=== PATIENT | female | born 1985 | race Caucasian/White ===

== ENCOUNTER 2017-10-10 11:56 | Outpatient (CLI) | payer OTHER ==
[~2017-10-10] VITALS: Ht 170.2 cm; Wt 86.9 kg
[2017-10-10] MEDS ORDERED: TIZA4CAP8 PO (12:12)
[2017-10-10] MEDS ORDERED: DIPH25CA79 PO (12:12)
[2017-10-10] MEDS ORDERED: RANI-515 PO (12:12)
[2017-10-10] MEDS ORDERED: METO100T12 PO (12:12)
[2017-10-10] MEDS ORDERED: CLON0.5T25 PO (12:12)
[2017-10-10] MEDS ORDERED: GABA-488 PO (12:12)
[2017-10-10] MEDS ORDERED: TRAZ150T72 PO (12:12)
[2017-10-10 12:15] VITALS: BP 102/62
[2017-10-10 12:57] LABS: BASOPHILS % (AUTO) 1 % (0-10); EOSINOPHILS # (AUTO) 0.1 10^3/uL (0.0-0.3); EOSINOPHILS % (AUTO) 2 % (0-10); HEMATOCRIT 39 % (35-52); HEMOGLOBIN 14.4 G/DL (11.5-16.0); LYMPHOCYTES # (AUTO) 3.1 X 10^3 (1.0-4.0); LYMPHOCYTES % (AUTO) 39 % (12-44); MEAN CORPUSCULAR HEMOGLOBIN 34 PG (25-34); MEAN CORPUSCULAR HGB CONC 37 G/DL (32-36); MEAN CORPUSCULAR VOLUME 93 FL (80-99); MEAN PLATELET VOLUME 9.9 FL (7.4-10.4); MONOCYTES # (AUTO) 0.5 X 10^3 (0.0-1.0); MONOCYTES % (AUTO) 6 % (0-12); NEUTROPHILS # (AUTO) 4.2 X 10^3 (1.8-7.8); NEUTROPHILS % (AUTO) 53 % (42-75); PLATELET COUNT 237 10^3/uL (130-400); RED BLOOD COUNT 4.23 10^6/uL (4.35-5.85); RED CELL DISTRIBUTION WIDTH 11.9 % (10.0-14.5); WHITE BLOOD COUNT 7.9 10^3/uL (4.3-11.0)
== END 2017-10-11 09:42 ==
LOC: PREOP 11:56
PROVIDERS: ATTEND Obstetrics & Gynecology
DX: Z01.812 Encounter for preprocedural laboratory examination (principal); Z11.2 Encounter for screening for other bacterial diseases; N81.2 Incomplete uterovaginal prolapse; N39.3 Stress incontinence (female) (male)
CPT/HCPCS: 36415; 85025; 86850; 86900; 86901; 87081

== ENCOUNTER → 2021-06-21 | Outpatient (CLI) | payer BC ==
[~2021-06-21] MED LIST: CLON0.5T25 PO; DIPH25CA79 PO; DOCU100C37 PO; GABA-488 PO; GADOBUTROL 10 MMOL/10 ML (GADAVIST) VIAL IV ONE; IBUP-1780 PO; METO100T12 PO; OXYC-556 PO; RANI-609 PO; TIZA4CAP8 PO; TRAZ150T72 PO
--- NOTE | 2021-06-21 13:21 | Diagnostic Imaging Report ---
CLINICAL INDICATION: Patient had right-sided facial numbness. Left-sided body weakness and confusion with episode about a month ago and still has left-sided body weakness. EXAM: MRI of the brain performed without and with 9 cc of Gadavist IV contrast. Sequences include axial DWI, ADC map, coronal gradient echo, axial T2, axial FLAIR, axial T1, axial T1 post IV contrast, coronal T1 fat-sat post IV contrast, and sagittal T1 post IV contrast. COMPARISON: None. FINDINGS: There is no evidence of acute cerebral infarct, intracranial hemorrhage, or gross mass effect. There is no abnormal IV contrast enhancement. The brain parenchymal volume appears appropriate for patient's age. There are several focal areas of high T2 signal white matter changes involving subcortical and deep white matter of both cerebral hemispheres, likely representing chronic small vessel ischemic disease. There is normal martines-white matter distinction. There is no significant midline shift or herniation. The [place] vascular structures show no gross abnormality as visualized. The pituitary gland, sella, and suprasellar regions are unremarkable as visualized. There is no evidence of hydrocephalus. The basal cisterns are unremarkable. The skull, extracranial soft tissue, and orbits are unremarkable. There is a moderate-sized mucous retention cyst involving the left maxillary sinus. Temporal bones show no significant abnormality. IMPRESSION: 1: There is no evidence of acute intracranial process. There is no abnormal IV contrast enhancement. 2: There are several nonspecific focal areas of high T2 signal white matter changes involving both frontal lobes. Findings may be seen with migraine headaches or early chronic small vessel ischemic disease. Although these do not have the typical location of demyelinating lesions, a demyelinating process should be excluded. 3: The remainder of the brain parenchyma is unremarkable. 4: Moderate-sized left maxillary sinus mucous retention cyst. Dictated by: Dictated on workstation # [id number]
--- NOTE | 2021-06-21 13:30 | Diagnostic Imaging Report ---
PROCEDURE: US carotid duplex, bilateral. TECHNIQUE: Multiple real-time grayscale images were obtained over the carotid arteries in various projections, bilaterally. Additional spectral analysis and color Doppler duplex images were also obtained. INDICATION: Transient ischemic attack. COMPARISON: None. FINDINGS: Right carotid: No significant atherosclerosis or stenosis is seen in the right common or internal carotid arteries. The distal internal carotid artery is deep and difficult to visualize. The ECA is patent. The vertebral artery is antegrade. Carotid upstrokes are brisk. Left carotid: No significant atherosclerosis or stenosis is seen in the common carotid artery or internal carotid artery. The distal ICA is deep and somewhat difficult to visualize. The ECA appears patent. The vertebral artery is antegrade. Carotid upstrokes are brisk. Parameters based on the consensus panel Lopez-Scale and Doppler ultrasound criteria published July 2003, Radiology, Volume 229. DOPPLER (peak systolic velocity M/S Right Left CCA 1.0 .65 ICA Proximal .73 .87 ICA Mid .90 .65 ICA Distal .63 .43 RATIO .87 1.35 ECA .65 .73 VERT .44 .44 IMPRESSION: 1. No hemodynamically significant stenosis in the bilateral carotid arteries. Dictated by: Dictated on workstation # [id number]
== END ==
LOC: CARD 09:30
PROVIDERS: ATTEND Internal Medicine Cardiovascular Disease
DX: I51.7 Cardiomegaly (principal); Z86.73 Personal history of transient ischemic attack (TIA), and cerebral infarction without residual deficits
CPT/HCPCS: 70553; 93306; 93880

== ENCOUNTER 2021-08-03 09:30 | Day surgery (SDC) | payer BC ==
[~2021-08-03] VITALS: Ht 170.2 cm; Wt 96.4 kg
[2021-08-03 09:23] VITALS: BP 101/64
[~2021-08-03 09:30] MED LIST changes: -GADOBUTROL 10 MMOL/10 ML (GADAVIST) VIAL IV ONE
[2021-08-03] MEDS ORDERED: LIDOCAINE 1% INJ 20 ML 20 ML VIAL ONE (09:42)
--- NOTE | 2021-08-03 09:48 | Consultation-Cardiology ---
HPI-Cardiology Cardiology Consultation: Date of Consultation 08/03/2021 Date of Admission 08/03/2021 This is a history and physical for loop recorder implantation. Attending Physician George Loza Jr, MD Admitting Physician [facility] Consulting Physician GEORGE LOZA JR, MD HPI: Time Seen by a Provider: 09:43 Chief Complaint: Possible transient ischemic attack and palpitations. Kimberly is a 36-year-old female with a long history of palpitations. I met her in the office in May 2021 after she had symptoms consistent with a possible transient ischemic attack. I had her undergo a 30-day external manager cardiac cath that did not reveal any evidence of atrial fibrillation. As such, she presents today for an implantable loop recorder insertion. She denies any recurrent neurologic symptoms. She continues to have palpitations on almost a daily basis. She will feel like her heart is pounding out of her chest. Sometimes this will make her chest feel tight and she will be short of breath. Usually these symptoms will be mild and short-lived but at other times, the symptoms may be more severe and prolonged. She denies any syncope. She denies paroxysmal nocturnal dyspnea, orthopnea, or ankle edema. Certain portions of this document may have been dictated utilizing voice recognition technology. Inherent to this technology, typographical and grammatical errors may exist. As much as I am diligent to identify and correct these mistakes, some errors may remain in the document. Review of Systems-Cardiology Review of Systems Other comments Review of 10 organ systems is as per the history of present illness, otherwise negative. BUU-Licreh-Ifejmf Hx Patient Social History Smoking Status: Former Smoker Past Medical History PMH As described under Assessment. Family Medical History Family Medical History: The patient does not know of any family history of premature coronary artery disease in first-degree relatives. Allergies and Home Medications Allergies Coded Allergies: buspirone (Verified Allergy, Mild, "MADE ME CRAZY", 11/08/17) hydrocodone (Verified Adverse Reaction, Mild, N/V, 11/08/17) morphine (Verified Adverse Reaction, Mild, N/V, 11/08/17) Patient Home Medication List Home Medication List Reviewed: Yes Clonazepam (Clonazepam) 0.5 Mg Tab.rapdis, 0.5 MG PO BID PRN for ANXIETY, (Reported) Entered as Reported by: TETE AGUILAR on 10/10/17 1212 Diphenhydramine HCl (Benadryl) 25 Mg Capsule, 50 MG PO PRN PRN for CONGESTION, (Reported) Entered as Reported by: TETE AGUILAR on 10/10/17 1212 Docusate Sodium (Docusate Sodium) 100 Mg Capsule, 100 MG PO BID Prescribed by: ROSALIO QUINTERO on 11/09/17 1030 Gabapentin (Gabapentin) 300 Mg Capsule, 300 MG PO TID, (Reported) Entered as Reported by: TETE AGUILAR on 10/10/17 1212 Ibuprofen (Ibuprofen) 800 Mg Tablet, 800 MG PO Q6H Prescribed by: ROSALIO QUINTERO on 11/09/17 1030 Metoprolol Tartrate (Metoprolol Tartrate) 100 Mg Tablet, 100 MG PO TID, (Reported) Entered as Reported by: TETE AGUILAR on 10/10/17 121 Oxycodone HCl/Acetaminophen (Oxycodone-Acetaminophen 10-325) 1 Each Tablet, 1-2 TAB PO Q4HR PRN for PAIN-MODERATE TO SEVERE Prescribed by: ROSALIO QUINTERO on 11/09/17 1030 Ranitidine HCl (Acid Grain Blender (RANITIDINE)) 150 Mg Tablet, 150 MG PO DAILY PRN for HEARTBURN, (Reported) Entered as Reported by: TETE AGUILAR on 10/10/17 1212 Tizanidine HCl (Tizanidine HCl) 4 Mg Capsule, 4 MG PO TID, (Reported) Entered as Reported by: TETE AGUILAR on 10/10/17 1212 Trazodone HCl (Trazodone HCl) 150 Mg Tablet, 150 MG PO HS, (Reported) Entered as Reported by: TETE AGUILAR on 10/10/17 1212 Exam Vital Signs Vital Signs Date Time Temp Pulse Resp B/P (MAP) Pulse Ox O2 Delivery O2 Flow Rate FiO2 08/03/21 09:23 36.3 63 18 101/64 (76) 97 Physical Exam General: Alert. No acute distress. Well nourished and appears stated age. Eye: Extraocular movements are intact. Conjunctivae are clear. There are no xanthelasma. HENT: Normocephalic. Atraumatic. Carotid pulsations 2/2 without bruits. Neck: Jugular venous pressure does not appear elevated. No thyromegaly appreciated. Respiratory: Lungs are clear to auscultation. Respirations are non-labored. Breath sounds are equal. Symmetrical chest wall expansion. Cardiovascular: Normal rate. Regular rhythm. No murmur. No gallop. Point of maximal impulse is not appear displaced. Good pulses equal in all extremities. No edema. Gastrointestinal: Soft. Normal bowel sounds. Skin: Skin turgor is normal. There is no pallor. Musculoskeletal: No kyphosis or scoliosis appreciated. Neurologic: Alert and oriented to person, place, time. Cranial nerves 3-12 appear grossly intact. The patient has good motor tone strength in the upper and lower extremities bilaterally. Psychiatric: Cooperative. Appropriate mood & affect. Diagnosis/Problems Diagnosis/Problems (1) History of transient ischemic attack Assessment & Plan: As above, she had a possible transient ischemic attack a couple of months ago. No recurrent neurologic symptoms. She had an MRI of the brain that did not show any definitive evidence of a previous stroke. We will proceed with an implantable loop recorder today for prolonged surveillance of possible atrial fibrillation. (2) Palpitations Assessment & Plan: Etiology unclear. There is no evidence of Vcwat-Ptkbgrwpm-Vbxcn, Brugada syndrome, or prolonged or short QT on her resting electrocardiogram. She did have isolated premature ventricular complexes on her event monitor but these did not correlate to her symptoms during the test. We will provide her with a patient activated for the loop recorder so that we can further evaluate her palpitations. (3) Primary hypertension Assessment & Plan: Continue outpatient antihypertensive medication. (4) Obesity Assessment & Plan: She needs to work on weight loss. GEORGE LOZA JR, MD Aug 03, 2021 09:48
--- NOTE | 2021-08-03 10:20 | Cardiac Procedure Note ---
Cardiology Procedures Date of Procedure 08/03/2021 IMPLANTABLE LOOP RECORDER INSERTION INDICATION: Personal history of transient ischemic attack and palpitations. PROCEDURE: After informed consent and in the fasting state, the left pectoral area was prepped and draped in the usual sterile fashion. The skin and subcutaneous tissue in the fourth intercostal space in the midclavicular line were infiltrated with 2% lidocaine for local anesthesia. A peterson was made in the skin using the insertion kit. A Medtronic LINQ II implantable loop recorder, serial number [id number], was then inserted using the insertion tool. The device was interrogated and there was good R wave sensitivity. Dermabond was applied to the incision. A sterile antibiotic dressing was applied. IMPRESSION: 1. Status post successful implantable loop recorder insertion with a Medtronic LINQ II loop recorder, serial number [id number]. Certain portions of this document may have been dictated utilizing voice r ecognition technology. Inherent to this technology, typographical and grammatical errors may exist. As much as I am diligent to identify and correct these mistakes, some errors may remain in the document. GEORGE BOOKER JR, MD Aug 03, 2021 10:20
[2021-08-03 10:38] LABS: BASOPHILS % (AUTO) 1 % (0-10); EOSINOPHILS # (AUTO) 0.2 10^3/uL (0.0-0.3); EOSINOPHILS % (AUTO) 2 % (0-10); HEMATOCRIT 39 % (35-52); HEMOGLOBIN 13.6 g/dL (11.5-16.0); LYMPHOCYTES # (AUTO) 3.3 10^3/uL (1.0-4.0); LYMPHOCYTES % (AUTO) 44 % (12-44); MEAN CORPUSCULAR HEMOGLOBIN 33 pg (25-34); MEAN CORPUSCULAR HGB CONC 35 g/dL (32-36); MEAN CORPUSCULAR VOLUME 94 fL (80-99); MEAN PLATELET VOLUME 9.4 fL (9.0-12.2); MONOCYTES # (AUTO) 0.3 10^3/uL (0.0-1.0); MONOCYTES % (AUTO) 5 % (0-12); NEUTROPHILS # (AUTO) 3.6 10^3/uL (1.8-7.8); NEUTROPHILS % (AUTO) 48 % (42-75); PLATELET COUNT 230 10^3/uL (130-400); WHITE BLOOD COUNT 7.4 10^3/uL (4.3-11.0)
[2021-08-03 11:16] LABS: ALBUMIN 4.3 GM/DL (3.2-4.5); BILIRUBIN,TOTAL 0.5 MG/DL (0.1-1.0); CALCIUM 9.3 MG/DL (8.5-10.1); CREATININE SERUM 0.78 MG/DL (0.60-1.30); POTASSIUM 4.3 MMOL/L (3.6-5.0); TOTAL PROTEIN 7.1 GM/DL (6.4-8.2)
== END 2021-08-03 11:01 | disposition home or self-care (01) ==
LOC: CATH 09:30
PROVIDERS: ATTEND Internal Medicine Cardiovascular Disease
DX: R00.1 Bradycardia, unspecified (principal); I10 Essential (primary) hypertension; E66.9 Obesity, unspecified; Z68.33 Body mass index [BMI] 33.0-33.9, adult; Z87.891 Personal history of nicotine dependence; Z88.5 Allergy status to narcotic agent; Z88.8 Allergy status to other drugs, medicaments and biological substances; Z79.899 Other long term (current) drug therapy
CPT/HCPCS: 33285; 80053; 80061; 84443; 85025; C1764; 36415

== ENCOUNTER → 2023-01-23 | Outpatient (CLI) | payer BC ==
--- NOTE | 2023-01-23 14:48 | Diagnostic Imaging Report ---
EXAMINATION: MRI of the right lower extremity with and without contrast, 01/23/2023. TECHNIQUE: Multiplanar, multisequence pre- and gekg-jdfbowgj-ldfkeelz MR imaging of the right lower extremity was accomplished. INDICATION: Hit foot on a hard surface two months ago. Pain along the top of the foot. FINDINGS: The visualized osseous structures demonstrate normal signal intensity with no fractures identified. Visualized tendons are also intact. Soft tissues are unremarkable. No focal measurable masses or fluid collections appreciated. Postcontrast imaging demonstrates no abnormal enhancement with hyperintensity about the fourth toe, likely artifactual. This appears to represent incomplete fat saturation. No abnormally enhancing masses appreciated. IMPRESSION: 1. No evidence for an acute abnormality. Visualized tendons and osseous structures intact. 2. Not mentioned in the body of the report, minimal fluid is seen within the soft tissues in between the metatarsal heads of uncertain etiology. This could be due to stress reaction. Correlate with site of pain. Dictated by: Dictated on workstation # [id number]
== END ==
LOC: RAD 09:12
PROVIDERS: ATTEND Nurse Practitioner Family
DX: M79.671 Pain in right foot (principal)
CPT/HCPCS: 73720

== ENCOUNTER → 2023-01-30 | Outpatient (CLI) | payer BC | LOC: ORTHO 09:20 | PROVIDERS: ATTEND Orthopaedic Surgery | DX: S93.691A Other sprain of right foot, initial encounter (principal); I10 Essential (primary) hypertension; E66.9 Obesity, unspecified; X58.XXXA Exposure to other specified factors, initial encounter; Z72.0 Tobacco use | CPT/HCPCS: 99203 ==

== ENCOUNTER 2023-03-22 11:08 | Emergency (ER) | payer BC ==
[~2023-03-22] VITALS: Ht 170.2 cm; Wt 100.0 kg
--- NOTE | 2023-03-22 11:26 | ED Abdominal Pain ---
General Chief Complaint: Abdominal/GI Problems Stated Complaint: LOWER RT ABD PAIN Nursing Triage Note: PT AMBULATE TO ROOM 07 WITHOUT DIFFICULTY WITH C/O RIGHT LOWER ABD PAIN, N/V, CRAMPING STARTING YESTERDAY MORNING. PT SENT FROM PCP. Source of Information: Patient Exam Limitations: No Limitations History of Present Illness Date Seen by Provider: Mar 22, 2023 Time Seen by Provider: 11:12 Initial Comments 37-year-old female presents to the ER with complaints of right lower quadrant abdominal pain which radiates around to her right hip. She states that she star anthony having generalized abdominal cramping then it moved into the right lower quadrant yesterday morning. She denies known fevers, but reports sweating. Reports nausea, no vomiting. Reports multiple episodes of diarrhea, thinks she had approximately 10 loose stools yesterday and 3 today. Denies any vaginal bleeding or discharge. Denies dysuria. She has had a partial hysterectomy. Other abdominal surgeries include cholecystectomy, tubal ligation, and a bladder sling. She has a history of IBS, kidney infections, elevated heart rate, migraines. She currently takes metoprolol, tizanidine, trazodone, and lamotrigine. Allergies and Home Medications Allergies Coded Allergies: buspirone (Verified Allergy, Mild, "MADE ME CRAZY", 11/08/17) morphine (Verified Adverse Reaction, Mild, N/V, 11/08/17) Patient Home Medication List Home Medication List Reviewed: Yes Clonazepam (Clonazepam) 0.5 Mg Tab.rapdis, 0.5 MG PO BID PRN for ANXIETY, (Reported) Entered as Reported by: TETE AGUILAR on 10/10/17 1212 Diphenhydramine HCl (Benadryl) 25 Mg Capsule, 50 MG PO PRN PRN for CONGESTION, (Reported) Entered as Reported by: TETE AGUILAR on 10/10/17 1212 Docusate Sodium (Docusate Sodium) 100 Mg Capsule, 100 MG PO BID Prescribed by: ROSALIO QUINTERO on 11/09/17 1030 Gabapentin (Gabapentin) 300 Mg Capsule, 300 MG PO TID, (Reported) Entered as Reported by: TETE AGUILAR on 10/10/17 1212 Ibuprofen (Ibuprofen) 800 Mg Tablet, 800 MG PO Q6H Prescribed by: ROSALIO QUINTERO on 11/09/17 1030 Metoprolol Tartrate (Metoprolol Tartrate) 100 Mg Tablet, 100 MG PO TID, (Reported) Entered as Reported by: TETE AGUILAR on 10/10/17 1212 Oxycodone HCl/Acetaminophen (Oxycodone-Acetaminophen 10-325) 1 Each Tablet, 1-2 TAB PO Q4HR PRN for PAIN-MODERATE TO SEVERE Prescribed by: ROSALIO QUINTERO on 11/09/17 1030 Ranitidine HCl (Acid Bus Matron (RANITIDINE)) 150 Mg Tablet, 150 MG PO DAILY PRN for HEARTBURN, (Reported) Entered as Reported by: TETE AGUILAR on 10/10/17 1212 Tizanidine HCl (Tizanidine HCl) 4 Mg Capsule, 4 MG PO TID, (Reported) Entered as Reported by: TETE AGUILAR on 10/10/17 1212 Trazodone HCl (Trazodone HCl) 150 Mg Tablet, 150 MG PO HS, (Reported) Entered as Reported by: TETE AGUILAR on 10/10/17 1212 Review of Systems Review of Systems Constitutional: see HPI Past Ljalkep-Qpsmhc-Fmzzen Hx Patient Social History Tobacco Use?: No Smoking Status: Former Smoker Smokeless Tobacco Frequency: Never a User Use of E-Cig and/or Vaping dev: No Substance use?: Yes Substance type: Marijuana Substance frequency: Once in a while Alcohol Use?: No Pt feels they are or have been: No Seasonal Allergies Seasonal Allergies: Yes Past Medical History Bladder Surgery, Gallbladder, Hysterectomy, Tonsillectomy, Tubal Ligation Palpitations Concussion, TIA Reproductive Disorders: Yes (UTEROVAGINAL PROLAPSE, YOKASTA) Female Reproductive Disorders: Menstrual Problems 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 9.0oz. 89.635304gw; 34.00 BMI Method: General Appearance: WD/WN, no apparent distress Neck: supple, normal inspection Respiratory: lungs clear, normal breath sounds, no respiratory distress, no accessory muscle use Cardiovascular: regular rate, rhythm Gastrointestinal: normal bowel sounds, soft, tenderness (Mild tenderness right mid abdomen) Extremities: normal range of motion, normal inspection (Right foot is in a boot due to an ankle sprain) Neurologic/Psychiatric: alert, normal mood/affect Skin: normal color, warm/dry Progress/Results/Core Measures Results/Orders Lab Results Laboratory Tests Test 03/22/23 11:27 Range/Units White Blood Count 7.5 4.3-11.0 10^3/uL Red Blood Count 4.35 3.80-5.11 10^6/uL Hemoglobin 14.0 11.5-16.0 g/dL Hematocrit 39 35-52 % Mean Corpuscular Volume 90 80-99 fL Mean Corpuscular Hemoglobin 32 25-34 pg Mean Corpuscular Hemoglobin Concent 36 32-36 g/dL Red Cell Distribution Width 11.5 10.0-14.5 % Platelet Count 314 130-400 10^3/uL Mean Platelet Volume 9.5 9.0-12.2 fL Immature Granulocyte % (Auto) 1 % Neutrophils (%) (Auto) 49 42-75 % Lymphocytes (%) (Auto) 43 12-44 % Monocytes (%) (Auto) 4 0-12 % Eosinophils (%) (Auto) 2 0-10 % Basophils (%) (Auto) 1 0-10 % Neutrophils # (Auto) 3.7 1.8-7.8 10^3/uL Lymphocytes # (Auto) 3.2 1.0-4.0 10^3/uL Monocytes # (Auto) 0.3 0.0-1.0 10^3/uL Eosinophils # (Auto) 0.1 0.0-0.3 10^3/uL Basophils # (Auto) 0.1 0.0-0.1 10^3/uL Immature Granulocyte # (Auto) 0.0 0.0-0.1 10^3/uL Urine Color YELLOW Urine Clarity CLEAR Urine pH 6.0 5-9 Urine Specific [place] <=1.005 1.016-1.022 Urine Protein NEGATIVE NEGATIVE Urine Glucose (UA) NEGATIVE NEGATIVE Urine Ketones NEGATIVE NEGATIVE Urine Nitrite NEGATIVE NEGATIVE Urine Bilirubin NEGATIVE NEGATIVE Urine Urobilinogen 0.2 < = 1.0 MG/DL Urine Leukocyte Esterase NEGATIVE NEGATIVE Urine RBC (Auto) TRACE-L H NEGATIVE Urine RBC RARE /HPF Urine WBC NONE /HPF Urine Squamous Epithelial Cells 0-2 /HPF Urine Crystals NONE /LPF Urine Bacteria NEGATIVE /HPF Urine Casts NONE /LPF Urine Mucus NEGATIVE /LPF Urine Culture Indicated NO Urine Test NEGATIVE NEGATIVE Sodium Level 139 135-145 MMOL/L Potassium Level 4.6 3.6-5.0 MMOL/L Chloride Level 108 H 98-107 MMOL/L Carbon Dioxide Level 18 L 21-32 MMOL/L Anion Gap 13 5-14 MMOL/L Blood Urea Nitrogen 12 7-18 MG/DL Creatinine 0.87 0.60-1.30 MG/DL Estimat Glomerular Filtration Rate 89 BUN/Creatinine Ratio 14 Glucose Level 107 H 70-105 MG/DL Calcium Level 8.8 8.5-10.1 MG/DL Corrected Calcium 8.4 L 8.5-10.1 MG/DL Total Bilirubin 0.7 0.1-1.0 MG/DL Aspartate Amino Transf (AST/SGOT) 36 H 5-34 U/L Alanine Aminotransferase (ALT/SGPT) 33 0-55 U/L Alkaline Phosphatase 53 40-136 U/L C-Reactive Protein High Sensitivity 0.15 0.00-0.50 MG/DL Total Protein 7.6 6.4-8.2 GM/DL Albumin 4.5 3.2-4.5 GM/DL My Orders Orders - JAYDEN CAUSEY GRAPHIC DESIGN PROFESSOR Ua Culture If Indicated (03/22/23 11:11) Urine Bedside (03/22/23 11:11) Comprehensive Metabolic Panel (03/22/23 11:20) Ed Iv/Invasive Line Start (03/22/23 11:20) Cbc With Automated Diff (03/22/23 11:20) Ct Abdomen/Pelvis W (03/22/23 11:20) Ketorolac Injection (Toradol Injection) (03/22/23 11:30) Ondansetron Injection (Zofran Injectio (03/22/23 11:30) Ns Iv 1000 Ml (Sodium Chloride 0.9%) (03/22/23 11:30) Hs C Reactive Protein (03/22/23 11:20) Iohexol Injection (Omnipaque 350 Mg/Ml 1 (03/22/23 11:30) Received Contrast (Hold Metformin- Contr (03/22/23 11:30) Ns (Ivpb) (Sodium Chloride 0.9% Ivpb Bag (03/22/23 11:30) Hcg,Qualitative Urine (03/22/23 11:39) Medications Given in ED Current Medications Medications Dose Ordered Sig/Jerod Route Start Time Stop Time Status Last Admin Dose Admin Iohexol 100 ml ONCE ONCE IV 03/22/23 11:30 03/22/23 11:31 DC 03/22/23 11:41 80 ML Ketorolac Tromethamine 15 mg ONCE ONCE IVP 03/22/23 11:30 03/22/23 11:31 DC 03/22/23 11:32 15 MG Ondansetron HCl 4 mg ONCE ONCE IVP 03/22/23 11:30 03/22/23 11:31 DC 03/22/23 11:32 4 MG Sodium Chloride 100 ml ONCE ONCE IV 03/22/23 11:30 03/22/23 11:31 DC 03/22/23 11:41 80 ML Vital Signs/I&O 03/22/23 11:13 Temp 36.9 Pulse 81 Resp 18 B/P (MAP) 111/82 (92) O2 Delivery Room Air Blood Pressure Mean: 92 Progress Progress Note : Progress Note Patient seen evaluated, resting comfortably in bed, no acute distress. Based on exam and symptoms, differential diagnosis includes but is not limited to appendicitis, UTI, pyelonephritis, ovarian cyst, nephrolithiasis, other intra- abdominal pathologies. Work-up initiated including CBC, CMP, UA, urine , CT abdomen pelvis. IV fluids, Zofran, Toradol ordered. [address] reviewed. CBC grossly normal. CMP shows slightly elevated chloride 108, slightly decreased CO2 18, slightly decreased calcium 8.4, slightly elevated AST 36. Urinalysis shows trace RBCs. Urine negative. CT shows no acute abnormality. Results discussed with patient. Patient states that this pain feels similar to her IBS, just worse than normal. Her symptoms might related to her IBS or gastroenteritis. Discharge instructions and return precautions provided. Departure Impression Primary Impression: Gastroenteritis Disposition: HOME, SELF-CARE Condition: Stable Departure-Patient Inst. Decision time for Depature: 12:22 Referrals: GIA SOMMER APRN (PCP/Family) Primary Care Physician Patient Instructions: Viral gastroenteritis in adults Add. Discharge Instructions: Make sure you are drinking plenty of fluids. Follow-up with your primary care provider. Return if your pain continues or gets worse, or you have any other new, concerning, or worsening symptoms. All discharge instructions reviewed with patient and/or family. Voiced understanding. JAYDEN CAUSEY APRN Mar 22, 2023 11:26
[2023-03-22] MEDS ORDERED: NS 100 ML (IVPB) BAG IV ONE (11:30)
[2023-03-22] MEDS ORDERED: HOLD METFORMIN - RECEIVED CONTRAST 20 ML VIAL IV SCH (11:30)
[2023-03-22] MEDS ORDERED: NS IV 1000 ML 1,000 ML IV SCH (11:30)
[2023-03-22] MEDS ORDERED: IOHEXOL 350 MG/ML 100 ML (OMNIPAQUE 350) VIAL IV ONE (11:30)
[2023-03-22] MEDS ORDERED: ONDANSETRON 4 MG/2 ML (SDV) Z0FRAN IVP ONE (11:30)
[2023-03-22] MEDS ORDERED: KETOROLAC 30 MG/ML VIAL IVP ONE (11:30)
[2023-03-22 11:36] LABS: BASOPHILS # (AUTO) 0.1 10^3/uL (0.0-0.1); BASOPHILS % (AUTO) 1 % (0-10); BILIRUBIN,URINE NEGATIVE (NEGATIVE); CLARITY,URINE CLEAR; COLOR,URINE YELLOW; EOSINOPHILS # (AUTO) 0.1 10^3/uL (0.0-0.3); EOSINOPHILS % (AUTO) 2 % (0-10); GLUCOSE, URINE (UA) NEGATIVE (NEGATIVE); HEMATOCRIT 39 % (35-52); KETONES,URINE NEGATIVE (NEGATIVE); LEUKOCYTE ESTERASE ,URINE NEGATIVE (NEGATIVE); LYMPHOCYTES # (AUTO) 3.2 10^3/uL (1.0-4.0); LYMPHOCYTES % (AUTO) 43 % (12-44); MEAN CORPUSCULAR HEMOGLOBIN 32 pg (25-34); MEAN CORPUSCULAR HGB CONC 36 g/dL (32-36); MEAN CORPUSCULAR VOLUME 90 fL (80-99); MEAN PLATELET VOLUME 9.5 fL (9.0-12.2); MONOCYTES # (AUTO) 0.3 10^3/uL (0.0-1.0); MONOCYTES % (AUTO) 4 % (0-12); NEUTROPHILS # (AUTO) 3.7 10^3/uL (1.8-7.8); NEUTROPHILS % (AUTO) 49 % (42-75); NITRITE,URINE NEGATIVE (NEGATIVE); PLATELET COUNT 314 10^3/uL (130-400); PROTEIN,URINE NEGATIVE (NEGATIVE); WHITE BLOOD COUNT 7.5 10^3/uL (4.3-11.0)
[2023-03-22 11:48] LABS: BACTERIA,URINE NEGATIVE /HPF; RBC,URINE RARE /HPF; SQUAMOUS EPITHELIAL CELL,UR 0-2 /HPF
[2023-03-22 11:49] LABS: ALBUMIN 4.5 GM/DL (3.2-4.5); POTASSIUM 4.6 MMOL/L (3.6-5.0)
[2023-03-22 11:50] LABS: CALCIUM 8.8 MG/DL (8.5-10.1)
[2023-03-22 11:51] LABS: TOTAL PROTEIN 7.6 GM/DL (6.4-8.2)
[2023-03-22 11:53] LABS: BILIRUBIN,TOTAL 0.7 MG/DL (0.1-1.0)
[2023-03-22 11:55] LABS: CREATININE SERUM 0.87 MG/DL (0.60-1.30)
--- NOTE | 2023-03-22 12:06 | Diagnostic Imaging Report ---
PROCEDURE: CT abdomen and pelvis with contrast. TECHNIQUE: Multiple contiguous axial images were obtained through the abdomen and pelvis after administration of intravenous contrast. Auto Exposure Controls were utilized during the CT exam to meet ALARA standards for radiation dose reduction. All CT scans use one or more of the following dose optimizing techniques: automated exposure control, MA and/or KvP adjustment based on patient size and exam type or iterative reconstruction. INDICATION: Cramping, nausea, vomiting, right lower quadrant pain. No priors. The air-containing appendix is normal. The uterus atrophic or absent. There is no adnexal lesion. There is no abnormal fecal loading. No diverticulitis. No small or large bowel obstruction. Gallbladder surgically absent. The liver, spleen, adrenals and pancreas unremarkable. Kidneys unobstructed. No aneurysm, adenopathy or mass. The lung bases nonacute. No acute osseous abnormality. IMPRESSION: Unremarkable CT abdomen and pelvis. Dictated by: Dictated on workstation # [id number]
[2023-03-22 12:49] VITALS: BP 112/44
== END 2023-03-22 12:52 | disposition home or self-care (01) ==
LOC: EDUNIT# 11:08 → ER 11:09
DX: K52.9 Noninfective gastroenteritis and colitis, unspecified (principal); E87.8 Other disorders of electrolyte and fluid balance, not elsewhere classified; E83.51 Hypocalcemia; R79.81 Abnormal blood-gas level; R74.01 Elevation of levels of liver transaminase levels; G43.909 Migraine, unspecified, not intractable, without status migrainosus; Z79.899 Other long term (current) drug therapy; Z87.891 Personal history of nicotine dependence
CPT/HCPCS: 36415; 74177; 80053; 81000; 84703; 85025; 86141